=== PATIENT | female | born 1990 | race African-American/Black ===

== ENCOUNTER 2025-07-05 11:13 | Emergency (ER) | payer SELFPAY ==
[2025-07-05] MEDS ORDERED: Ondansetron PF 4 MG/2 ML Vial ONE (12:22)
== END 2025-07-05 14:18 | disposition home or self-care (01) ==
LOC: CSHERS 11:13
DX: K80.20 Calculus of gallbladder without cholecystitis without obstruction (principal); F17.290 Nicotine dependence, other tobacco product, uncomplicated
CPT/HCPCS: 76705; 96374; 96375; J2270; J2405

== ENCOUNTER 2025-07-29 12:36 | Outpatient (CLI) | payer SELFPAY ==
[2025-07-29 13:45] LABS: Hematocrit 36.2 % (34.9-44.5); Hemoglobin 11.1 g/dL (12.0-15.5); Mean Corpuscular Hemoglobin 21.0 pg (27.0-33.0); Mean Corpuscular Volume 68.4 fL (81.6-98.3); Platelet Count 289 10x3/uL (150-450); Red Blood Cell (RBC) Count 5.29 10x6/uL (3.90-5.03); White Blood Cell (WBC) Count 8.13 10x3/uL (3.5-10.5)
[2025-07-29 14:03] LABS: ALT (SGPT) 15 U/L (Less than 34); AST (SGOT) 14 U/L (11-34); Albumin 3.8 g/dL (3.1-4.5); Alkaline Phosphatase 74 U/L (40-110); Anion Gap 10 mmol/L (10-20); BUN (Urea Nitrogen) 8 mg/dL (7.0-18.7); Bilirubin, Direct 0.1 mg/dL (0.1-0.3); Bilirubin, Total 0.3 mg/dL (0.3-1.2); Calc. Creatinine Clearance 0 mL/min (70-130); Calcium 9.1 mg/dL (7.8-10.44); Carbon Dioxide 24 mmol/L (22-29); Chloride 109 mmol/L (98-107); Glucose 118 mg/dL (70-105); Potassium 4.0 mmol/L (3.5-5.1); Sodium 139 mmol/L (136-145)
== END 2025-07-29 12:37 | disposition home or self-care (01) ==
LOC: CSHLAB 12:36
PROVIDERS: ATTEND Surgery
DX: Z01.812 Encounter for preprocedural laboratory examination (principal); K81.9 Cholecystitis, unspecified
CPT/HCPCS: 80048; 80076; 85027

== ENCOUNTER 2025-08-01 08:33 | Day surgery (SDC) | payer SELFPAY ==
[2025-07-29 13:05] VITALS: BMI 50.9
[2025-08-01] MEDS ORDERED: CEFAZOLIN 2 GM VIAL ONE (09:22)
[2025-08-01] MEDS ORDERED: Bupivacaine/Epinephrine 0.25% 30 ML VIAL ONE (09:23)
[2025-08-01] MEDS ORDERED: PROPOFOL 20 ML ONE ×3 (10:23→11:41)
[2025-08-01] MEDS ORDERED: Ketorolac Tromethamine 30 MG (1 mL) VIAL ONE (11:07)
[2025-08-01] MEDS ORDERED: SUGAMMADEX SODIUM 200 MG/2 ML VIAL ONE ×2 (11:08→11:30)
[2025-08-01] MEDS ORDERED: Bupivacaine HCl 0.5%/Epinephrine 1:200,000/PF 30 ml Vial ONE (11:17)
[2025-08-01] MEDS ORDERED: Ondansetron PF 4 MG/2 ML Vial ONE (12:09)
[2025-08-01] MEDS ORDERED: HYDROcodone/Acetaminophen 10/325 mg Tablet ONE (12:34)
== END 2025-08-01 13:30 | disposition home or self-care (01) ==
LOC: CSHSDC 08:33
PROVIDERS: ATTEND Surgery
PROC: 0FT44ZZ Resection of Gallbladder, Percutaneous Endoscopic Approach (ICD-10-PCS; principal; 2025-08-01)
DX: K80.12 Calculus of gallbladder with acute and chronic cholecystitis without obstruction (principal); J45.909 Unspecified asthma, uncomplicated
CPT/HCPCS: 47562; C9776; 88304; C1889; J1885; J2405; J2704; J3010; S2900